=== PATIENT | female | born 1995 | race Caucasian/White ===

== ENCOUNTER 2017-06-06 09:25 | Inpatient (IN) ==
[2017-06-06] MEDS ORDERED: DIPH/TET/ACEL PERT BOOSTER VACCINE 0.5 ML VIAL IM ONE ×2 (09:57→11:53)
[2017-06-06 10:48] LABS: ABG Base Excess -0.8 MMOL/L (-2.5-2.5); ABG HCO3 23.7 MMOL/L (20-26); ABG Oxygen Saturation 98.3 % (95-100); ABG PCO2 44.3 MM HG (35-48); ABG PH 7.358 (7.35-7.45); ABG TCO2 22.1 MMOL/L (23-27)
[2017-06-06 11:07] LABS: Basophils # 0.1 10*3/uL (0.0-0.2); Basophils % 0.5 % (0.0-0.8); Eosinophils # 0.1 10*3/uL (0.0-0.87); Eosinophils % 0.8 % (0.00-10.9); Hematocrit 37.6 VOL% (35.7-47.0); Hemoglobin 12.6 GM/DL (12.0-16.0); Immature Granulocytes % 0.5 %; Immature Granulocytes Absolute 0.05 #; Lymphocytes # 2.1 10*3/uL (1.4-4.0); Lymphocytes % 20.6 % (21.3-54.2); Mean Corpuscular HGB Conc 33.5 GM/DL (32-36); Mean Corpuscular Hemoglobin 32 PG (27-34); Mean Corpuscular Volume 94.5 FL (87-102); Mean Platelet Volume 9.8 FL (9.6-12.0); Monocytes % 10.4 % (1.7-12.7); Neutrophils # 6.7 10*3/uL (1.4-7.4); Neutrophils % 67.2 % (38.7-73.9); Platelet Count 265 T/CUMM (130-400); Red Blood Count 3.98 MC/CUMM (3.8-5.5); Red Cell Distribution Width 13.2 % (9.3-17.3)
[2017-06-06 11:17] LABS: INR 1.1; PT Patient Result 11.6 SECS; Partial Thromboplastin Time 28.1 SECS (0-40)
[2017-06-06 11:23] LABS: Apearance,Urine Slightly Hazy (Clear); Bacteria,Urine Occasional /HPF (Few); Bilirubin,Urine Negative (Negative); Blood, Urine Negative (Negative); Glucose,Urine (UA) Negative (Negative); Ketones,Urine 20 mg/dL (Negative); Mucus,Urine Moderate /LPF (Occasional); Nitrite,Urine Negative (Negative); Protein,Urine Negative; RBC,Urine 6 /HPF (0-4); Squamous Epithelial Cell,Urine Occasional /HPF (0-10); Urine Color Yellow (Yellow); Urine Specific Gravity 1.019 (1.001-1.035); WBC,Urine 13 /HPF (0-6)
[2017-06-06 11:29] LABS: Barbiturates Screen,Urine Negative (Negative); Benzodiazepines Screen,Urine Positive (Negative); Cannabinoid Screen,Urine Positive (Negative); Lactic Acid 0.9 MMOL/L (0.4-2.0); Opiate Screen,Urine Negative (Negative); Phencyclidine Screen,Urine Negative (Negative)
[2017-06-06 11:31] LABS: Alanine Aminotransferase 15 U/L (13-56); Albumin 3.6 G/DL (3.4-5.0); Alkaline Phosphatase 59 U/L (45-117); Amylase 25 U/L (25-115); Aspartate Amino Transferase 11 U/L (0-37); Blood Urea Nitrogen 10 MG/DL (7-18); Calcium 7.9 MG/DL (8.5-10.1); Glucose 62 MG/DL (74-106); Osmolality,Calculated 275.4 MOS/KG (273-304); Potassium 4.1 MMOL/L (3.5-5.1); Sodium 140 MMOL/L (136-145); Total Protein 6.3 G/DL (6.4-8.3)
[2017-06-06] MEDS ORDERED: DEXTROSE 50% 25 GM/50 ML VIAL IV STA (11:36)
[2017-06-06] MEDS ORDERED: DEXTROSE 50% 25 GM/50 ML SYRINGE IV ONE (11:43)
[2017-06-06] MEDS ORDERED: ceFAZolin 1,000 MG VIAL ONE (11:53)
[2017-06-06] MEDS ORDERED: ONDANSETRON 4 MG/2 ML VIAL IV PRN (14:59)
[2017-06-06] MEDS ORDERED: ALBUTEROL 2.5 MG/3 ML NEB RESP TX PRN (14:59)
[2017-06-06] MEDS ORDERED: SODIUM CHLORIDE 0.9% 1,000 ML IV STA (15:20)
[2017-06-06] MEDS ORDERED: LEVOFLOXACIN INJ 100 ML IV ONE (15:31)
[2017-06-06] MEDS ORDERED: FAMOTIDINE 20 MG/2 ML VIAL IV ONE (15:32)
[2017-06-06] MEDS: FAMOTIDINE 20 MG/2 ML VIAL IV SCH (15:44)
[2017-06-06] MEDS: LEVOFLOXACIN INJ 500 MG in PREMIX 1 EACH IV SCH (15:44)
[2017-06-06] MEDS: SODIUM CHLORIDE 0.9% 1,000 ML IV SCH (15:44)
[2017-06-06] MEDS ORDERED: ENOXAPARIN 40 MG/0.4 ML SYRINGE SUBCUT SCH (21:00)
[2017-06-06] MEDS ORDERED: ACETAMINOPHEN 325 MG TABLET PO PRN (22:09)
[2017-06-07] MEDS: SODIUM CHLORIDE 0.9% 1,000 ML IV SCH ×2 (00:02→06:42)
[2017-06-07] MEDS: FAMOTIDINE 20 MG/2 ML VIAL IV SCH (03:06)
[2017-06-07 06:54] LABS: Basophils # 0.1 10*3/uL (0.0-0.2); Basophils % 0.8 % (0.0-0.8); Eosinophils # 0.2 10*3/uL (0.0-0.87); Eosinophils % 3.4 % (0.00-10.9); Hematocrit 33.9 VOL% (35.7-47.0); Hemoglobin 11.6 GM/DL (12.0-16.0); Immature Granulocytes % 0.3 %; Immature Granulocytes Absolute 0.02 #; Lymphocytes # 2.3 10*3/uL (1.4-4.0); Lymphocytes % 36.2 % (21.3-54.2); Mean Corpuscular HGB Conc 34.2 GM/DL (32-36); Mean Corpuscular Hemoglobin 32 PG (27-34); Mean Corpuscular Volume 93.9 FL (87-102); Mean Platelet Volume 9.8 FL (9.6-12.0); Monocytes # 0.7 10*3/uL (0.11-0.8); Monocytes % 11.2 % (1.7-12.7); NRBC # 0.03 10*3/uL; Neutrophils # 3.1 10*3/uL (1.4-7.4); Neutrophils % 48.1 % (38.7-73.9); Platelet Count 221 T/CUMM (130-400); Red Blood Count 3.61 MC/CUMM (3.8-5.5); Red Cell Distribution Width 13.4 % (9.3-17.3); White Blood Count 6.4 T/CUMM (4-12)
[2017-06-07 07:31] LABS: Albumin 3.1 G/DL (3.4-5.0); Bilirubin,Total 1.2 MG/DL (0.2-1.0); Calcium 7.9 MG/DL (8.5-10.1); Osmolality,Calculated 282.8 MOS/KG (273-304); Potassium 3.9 MMOL/L (3.5-5.1); Total Protein 5.1 G/DL (6.4-8.3)
[2017-06-07 07:42] VITALS: BP 98/52
[2017-06-07] MEDS: LEVOFLOXACIN INJ 500 MG in PREMIX 1 EACH IV SCH (08:45)
== END 2017-06-07 10:43 | disposition home or self-care (01) | DRG 917 ==
LOC: EDBD → EDUNIT# → N.ED 09:25 → N.EDINP 12:40 → N.2E 18:25
PROVIDERS: ADMIT Hospitalist; ATTEND Hospitalist

== ENCOUNTER 2019-01-13 06:25 | Inpatient (IN) ==
[2019-01-13] MEDS ORDERED: ONDANSETRON 4 MG/2 ML VIAL IV PRN (07:16)
[2019-01-13] MEDS ORDERED: AMPICILLIN INJ 2,000 MG in SODIUM CHLORIDE 0.9% 100 ML IV ONE (07:20)
[2019-01-13 07:39] LABS: Basophils % 0.2 % (0.0-0.8); Eosinophils # 0.1 10*3/uL (0.0-0.87); Eosinophils % 1.4 % (0.00-10.9); Hematocrit 29.6 VOL% (35.7-47.0); Hemoglobin 9.7 GM/DL (12.0-16.0); Immature Granulocytes % 0.7 %; Immature Granulocytes Absolute 0.07 #; Lymphocytes # 2.3 10*3/uL (1.4-4.0); Lymphocytes % 23.8 % (21.3-54.2); Mean Corpuscular HGB Conc 32.8 GM/DL (32-36); Mean Corpuscular Volume 86.8 FL (87-102); Mean Platelet Volume 10.4 FL (9.6-12.0); Monocytes % 9.7 % (1.7-12.7); Neutrophils % 64.2 % (38.7-73.9); Platelet Count 234 T/CUMM (130-400); Red Blood Count 3.41 MC/CUMM (3.8-5.5); Red Cell Distribution Width 13.5 % (9.3-17.3); White Blood Count 9.5 T/CUMM (4-12)
[2019-01-13 08:01] LABS: Albumin 2.6 G/DL (3.4-5.0); Bilirubin,Total 0.6 MG/DL (0.2-1.0); Calcium 8.7 MG/DL (8.5-10.1); Osmolality,Calculated 280.3 MOS/KG (273-304); Total Protein 6.2 G/DL (6.4-8.3)
[2019-01-13] MEDS: AMPICILLIN INJ 1,000 MG in SODIUM CHLORIDE 0.9% 100 ML IV SCH ×3 (11:56→20:07)
[2019-01-13] MEDS ORDERED: BUTORPHANOL 1 MG/ML VIAL ONE (12:29)
[2019-01-13] MEDS: BUTORPHANOL 1 MG/ML VIAL IV PRN ×2 (12:32→15:31)
[2019-01-13] MEDS ORDERED: BUTORPHANOL 2 MG/ML VIAL IV PRN (16:34)
[2019-01-13] MEDS ORDERED: BUTORPHANOL 1 MG/ML VIAL IV ONE (16:38)
[2019-01-13] MEDS ORDERED: NALOXONE 0.4 MG/ML VIAL IV PRN (16:43)
[2019-01-13] MEDS ORDERED: hydrOXYzine HCL 25 MG/1 ML VIAL IM PRN (16:43)
[2019-01-13] MEDS ORDERED: FAMOTIDINE 20 MG/2 ML VIAL IV ONE (16:43)
[2019-01-13] MEDS ORDERED: diphenhydrAMINE 50 MG/1 ML VIAL IV PRN (16:43)
[2019-01-13] MEDS ORDERED: ePHEDrine 50 MG/ML AMP IV PRN (16:43)
[2019-01-13] MEDS ORDERED: CITRIC ACID/SODIUM CITRATE 30 ML UDCUP PO ONE (16:43)
[2019-01-13] MEDS ORDERED: fentaNYL 2 MCG/ROPIV 0.2% EPID 100 ML EPIDURAL SCH (17:00)
[2019-01-13] MEDS: LACTATED RINGERS 1,000 ML IV ONE ×2 (17:04→17:55)
[2019-01-13] MEDS ORDERED: LACTATED RINGERS 1,000 ML IV SCH (18:00)
[2019-01-13 18:36] LABS: Apearance,Urine CLEAR (Clear); Bacteria,Urine Occasional /HPF (Few); Bilirubin,Urine Negative (Negative); Blood, Urine Negative (Negative); Glucose,Urine (UA) Negative (Negative); Ketones,Urine Negative (Negative); Mucus,Urine Occasional /LPF (Occasional); Nitrite,Urine Negative (Negative); Protein,Urine Negative; RBC,Urine 3 /HPF (0-4); Squamous Epithelial Cell,Urine Occasional /HPF (0-10); Urine Color Yellow (Yellow); Urine Specific Gravity 1.016 (1.001-1.035); WBC,Urine 2 /HPF (0-6)
[2019-01-13] MEDS ORDERED: miSOPROStol 200 MCG TABLET ONE (22:43)
[2019-01-13] MEDS ORDERED: TRANEXAMIC ACID 1,000 MG/10 ML VIAL ONE (22:43)
[2019-01-13] MEDS ORDERED: CARBOPROST TROMETHAMINE 250 MCG/ML AMP IM ONE (22:44)
[2019-01-13] MEDS ORDERED: OXYTOCIN/LR 0 UNIT/0 ML BAG IV ONE (22:44)
[2019-01-13] MEDS ORDERED: METHYLERGONOVINE 0.2 MG/1 ML AMP ONE (22:44)
[2019-01-14] MEDS: AMPICILLIN INJ 1,000 MG in SODIUM CHLORIDE 0.9% 100 ML IV SCH (00:02)
[2019-01-14] MEDS ORDERED: OXYTOCIN/LR 20 UNIT/1,000 ML BAG IV ONE ×3 (01:26→03:22)
[2019-01-14] MEDS ORDERED: miSOPROStol 200 MCG TABLET ONE (01:26)
[2019-01-14] MEDS ORDERED: CARBOPROST TROMETHAMINE 250 MCG/ML AMP IM ONE (01:26)
[2019-01-14] MEDS ORDERED: METHYLERGONOVINE 0.2 MG/1 ML AMP ONE (01:26)
[2019-01-14] MEDS ORDERED: LIDOCAINE 1% 50 ML VIAL ONE (01:27)
[2019-01-14] MEDS ORDERED: WITCH HAZEL PADS 100/JAR TOP PRN (03:22)
[2019-01-14] MEDS ORDERED: BENZOCAINE 20%/MENTHOL 0.5% SPRAY 56 GM CAN TOP PRN (03:22)
[2019-01-14] MEDS ORDERED: LANOLIN 50% CREAM 0.3 OZ TUBE TOP PRN (03:22)
[2019-01-14] MEDS ORDERED: ACETAMINOPHEN 325 MG TABLET PO PRN (03:22)
[2019-01-14] MEDS ORDERED: BISACODYL 10 MG SUPP RECTAL PRN (03:22)
[2019-01-14] MEDS ORDERED: HYDROCORTISONE 2.5% RECTAL CREAM 30 GM TUBE TOP PRN (03:22)
[2019-01-14] MEDS ORDERED: ONDANSETRON 4 MG/2 ML VIAL IV PRN (03:22)
[2019-01-14] MEDS ORDERED: DIPH/TET/ACEL PERT BOOSTER VACCINE 0.5 ML VIAL IM ONE (03:22)
[2019-01-14] MEDS ORDERED: ACETAMINOPHEN/CODEINE 300-30 MG TABLET PO PRN ×2 (03:27→11:03)
[2019-01-14] MEDS: IBUPROFEN 800 MG TABLET PO PRN ×2 (04:35→11:11)
[2019-01-14 05:32] LABS: Basophils % 0.2 % (0.0-0.8); Hematocrit 28.7 VOL% (35.7-47.0); Hemoglobin 9.5 GM/DL (12.0-16.0); Immature Granulocytes % 0.8 %; Immature Granulocytes Absolute 0.14 #; Lymphocytes # 1.1 10*3/uL (1.4-4.0); Mean Corpuscular HGB Conc 33.1 GM/DL (32-36); Mean Corpuscular Volume 86.7 FL (87-102); Mean Platelet Volume 10.4 FL (9.6-12.0); Monocytes % 7.3 % (1.7-12.7); Neutrophils % 85.7 % (38.7-73.9); Platelet Count 213 T/CUMM (130-400); Red Blood Count 3.31 MC/CUMM (3.8-5.5); Red Cell Distribution Width 13.5 % (9.3-17.3); White Blood Count 18.3 T/CUMM (4-12)
[2019-01-14] MEDS: DOCUSATE SODIUM 100 MG CAPSULE PO SCH ×2 (09:56→20:41)
[2019-01-14] MEDS: FERROUS SULFATE 325 MG TABLET PO SCH (09:56)
[2019-01-15 05:56] LABS: Basophils % 0.3 % (0.0-0.8); Eosinophils # 0.2 10*3/uL (0.0-0.87); Eosinophils % 1.3 % (0.00-10.9); Hematocrit 28.7 VOL% (35.7-47.0); Hemoglobin 9.5 GM/DL (12.0-16.0); Immature Granulocytes Absolute 0.15 #; Lymphocytes # 2.5 10*3/uL (1.4-4.0); Lymphocytes % 17.3 % (21.3-54.2); Mean Corpuscular HGB Conc 33.1 GM/DL (32-36); Monocytes % 7.1 % (1.7-12.7); Platelet Count 220 T/CUMM (130-400); Red Blood Count 3.26 MC/CUMM (3.8-5.5); Red Cell Distribution Width 13.8 % (9.3-17.3); White Blood Count 14.3 T/CUMM (4-12)
[2019-01-15] MEDS: DOCUSATE SODIUM 100 MG CAPSULE PO SCH (09:52)
[2019-01-15] MEDS: FERROUS SULFATE 325 MG TABLET PO SCH (09:52)
[2019-01-15 11:42] VITALS: BP 94/60
== END 2019-01-15 14:10 | disposition home or self-care (01) | DRG 807 ==
LOC: N.LDOUT 06:25 → N.LD 06:26 → N.OB 01-14 04:10
PROVIDERS: ADMIT Obstetrics & Gynecology; ATTEND Obstetrics & Gynecology

== ENCOUNTER 2020-03-04 04:14 | Inpatient (IN) ==
[2020-03-04] MEDS ORDERED: ONDANSETRON 4 MG/2 ML VIAL IV PRN ×2 (04:28→07:32)
[2020-03-04] MEDS ORDERED: LACTATED RINGERS 1,000 ML IV ONE (04:28)
[2020-03-04] MEDS ORDERED: BUTORPHANOL 2 MG/ML VIAL IV PRN (04:28)
[2020-03-04] MEDS ORDERED: NALOXONE 0.4 MG/ML VIAL IV PRN (04:30)
[2020-03-04] MEDS ORDERED: diphenhydrAMINE 50 MG/1 ML VIAL IV PRN ×2 (04:30)
[2020-03-04] MEDS ORDERED: PROMETHAZINE 25 MG/1 ML VIAL IM ONE (04:30)
[2020-03-04] MEDS ORDERED: ePHEDrine 50 MG/ML VIAL IV PRN (04:30)
[2020-03-04] MEDS ORDERED: FAMOTIDINE 20 MG/2 ML VIAL IV ONE (04:30)
[2020-03-04] MEDS ORDERED: hydrOXYzine HCL 25 MG/1 ML VIAL IM PRN (04:30)
[2020-03-04] MEDS ORDERED: CITRIC ACID/SODIUM CITRATE 30 ML UDCUP PO ONE (04:30)
[2020-03-04] MEDS ORDERED: ONDANSETRON 4 MG/2 ML VIAL IV ONE (04:30)
[2020-03-04] MEDS ORDERED: LACTATED RINGERS 1,000 ML IV SCH ×2 (04:30→08:00)
[2020-03-04] MEDS ORDERED: fentaNYL 2 MCG/ROPIV 0.2% EPID 100 ML EPIDURAL SCH (04:30)
[2020-03-04 04:47] LABS: Basophils # 0.1 10*3/uL (0.0-0.2); Basophils % 0.4 % (0.0-0.8); Eosinophils # 0.1 10*3/uL (0.0-0.87); Eosinophils % 1.2 % (0.00-10.9); Hematocrit 29.2 VOL% (35.7-47.0); Hemoglobin 9.4 GM/DL (12.0-16.0); Immature Granulocytes % 0.6 %; Immature Granulocytes Absolute 0.07 #; Lymphocytes # 3.1 10*3/uL (1.4-4.0); Lymphocytes % 26.3 % (21.3-54.2); Mean Corpuscular HGB Conc 32.2 GM/DL (32-36); Mean Corpuscular Volume 81.3 FL (87-102); Mean Platelet Volume 9.4 FL (9.6-12.0); Monocytes % 8.8 % (1.7-12.7); Neutrophils % 62.7 % (38.7-73.9); Platelet Count 287 T/CUMM (130-400); Red Blood Count 3.59 MC/CUMM (3.8-5.5); Red Cell Distribution Width 14.1 % (9.3-17.3); White Blood Count 11.6 T/CUMM (4-12)
[2020-03-04] MEDS ORDERED: MEPERIDINE 50 MG/1 ML VIAL ONE (05:03)
[2020-03-04] MEDS ORDERED: MEPERIDINE 50 MG/1 ML VIAL IV ONE (05:06)
[2020-03-04] MEDS ORDERED: fentaNYL 100 MCG/2 ML VIAL ONE (05:08)
[2020-03-04 05:13] LABS: Albumin 2.7 G/DL (3.4-5.0); Bilirubin,Total 0.8 MG/DL (0.2-1.0); Calcium 9.3 MG/DL (8.5-10.1); Osmolality,Calculated 269.8 MOS/KG (273-304); Total Protein 6.4 G/DL (6.4-8.3)
[2020-03-04] MEDS ORDERED: OXYTOCIN/LR 20 UNIT/1,000 ML BAG IV ONE ×2 (05:35→07:32)
[2020-03-04] MEDS ORDERED: OXYTOCIN/LR 20 UNIT/1,000 ML BAG IV SCH (06:00)
[2020-03-04 06:41] LABS: Barbiturates Screen,Urine Negative (Negative); Benzodiazepines Screen,Urine Negative (Negative); Cannabinoid Screen,Urine Positive (Negative); Opiate Screen,Urine Negative (Negative); Phencyclidine Screen,Urine Negative (Negative)
[2020-03-04 06:48] LABS: Amorphous Crystals,Urine Moderate /HPF (Few); Bilirubin,Urine Negative (Negative); Blood, Urine Moderate mg/dL (Negative); Glucose,Urine (UA) Negative (Negative); Ketones,Urine Negative (Negative); Mucus,Urine Occasional /LPF (Occasional); Nitrite,Urine Negative (Negative); Protein,Urine Negative; Squamous Epithelial Cell,Urine Occasional /HPF (0-10); Urine Appearance CLOUDY (Clear); Urine Color Yellow (Yellow); Urine Specific Gravity 1.009 (1.001-1.035); Urine Urobilinogen < 2.0 EU/DL (0.2-1.0)
[2020-03-04] MEDS ORDERED: miSOPROStoL 200 MCG TABLET ONE (07:03)
[2020-03-04] MEDS ORDERED: LIDOCAINE 1% 50 ML VIAL ONE (07:03)
[2020-03-04] MEDS ORDERED: CARBOPROST TROMETHAMINE 250 MCG/ML AMP IM ONE (07:04)
[2020-03-04] MEDS ORDERED: METHYLERGONOVINE 0.2 MG/1 ML AMP ONE (07:04)
[2020-03-04] MEDS ORDERED: SIMETHICONE CHEW 80 MG TABLET PO PRN (07:32)
[2020-03-04] MEDS ORDERED: ACETAMINOPHEN 325 MG TABLET PO PRN (07:32)
[2020-03-04] MEDS ORDERED: MAGNESIUM HYDROXIDE SUSP 30 ML UDCUP PO PRN (07:32)
[2020-03-04] MEDS ORDERED: RHO(D) IMMUNE GLOBULIN 300 MCG SYRINGE IM ONE (07:32)
[2020-03-04 07:37] LABS: Cord Arterial Blood HCO3 21.9 MMOL/L
[2020-03-04 07:40] LABS: Cord Venous Blood HCO3 22.7 MMOL/L; Cord Venous Blood PO2 17.6
[2020-03-04] MEDS ORDERED: ceFAZolin 1,000 MG in SYRINGE 1 EACH IV SCH (08:00)
[2020-03-04] MEDS: IBUPROFEN 800 MG TABLET PO PRN ×2 (12:34→20:35)
[2020-03-04] MEDS: DOCUSATE SODIUM 100 MG CAPSULE PO SCH (20:35)
[2020-03-05 06:46] LABS: Basophils # 0.1 10*3/uL (0.0-0.2); Basophils % 0.4 % (0.0-0.8); Eosinophils # 0.3 10*3/uL (0.0-0.87); Eosinophils % 2.5 % (0.00-10.9); Hematocrit 26.2 VOL% (35.7-47.0); Hemoglobin 8.5 GM/DL (12.0-16.0); Immature Granulocytes % 0.5 %; Immature Granulocytes Absolute 0.06 #; Lymphocytes # 2.5 10*3/uL (1.4-4.0); Lymphocytes % 20.3 % (21.3-54.2); Mean Corpuscular HGB Conc 32.4 GM/DL (32-36); Mean Corpuscular Volume 82.6 FL (87-102); Mean Platelet Volume 9.6 FL (9.6-12.0); Neutrophils % 69.3 % (38.7-73.9); Platelet Count 238 T/CUMM (130-400); Red Blood Count 3.17 MC/CUMM (3.8-5.5); Red Cell Distribution Width 14.2 % (9.3-17.3); White Blood Count 12.5 T/CUMM (4-12)
[2020-03-05] MEDS: IBUPROFEN 800 MG TABLET PO PRN ×2 (09:49→20:01)
[2020-03-05] MEDS: DOCUSATE SODIUM 100 MG CAPSULE PO SCH ×2 (09:50→20:02)
[2020-03-05] MEDS: MULTIVITAMIN (PRENATAL) TABLET PO SCH (09:50)
[2020-03-06 08:38] VITALS: BP 105/66
[2020-03-06] MEDS: MULTIVITAMIN (PRENATAL) TABLET PO SCH (09:19)
[2020-03-06] MEDS: DOCUSATE SODIUM 100 MG CAPSULE PO SCH (09:19)
== END 2020-03-06 11:10 | disposition home or self-care (01) | DRG 807 ==
LOC: N.LDOUT 04:14 → N.LD 04:15 → N.OB 12:30
PROVIDERS: ADMIT Obstetrics & Gynecology; ATTEND Obstetrics & Gynecology